=== PATIENT | female | born 1995 | race Caucasian/White ===

== ENCOUNTER 2023-11-30 21:25 | Emergency (ER) | payer MEDICAID, OTHER ==
[~2023-11-30] VITALS: Ht 160 cm; Wt 63.6 kg
[2023-11-30 22:03] VITALS: O2SAT 98
[2023-11-30 22:40] VITALS: TEMP 36.89184
[2023-11-30 22:44] LABS: BASOPHILS % 0.5 % (0.0-2.0); EOSINOPHILS % 0.5 % (0.0-5.0); HEMATOCRIT. 38.9 % (36.0-48.0); HEMOGLOBIN. 13.3 g/dL (12.0-16.0); LYMPHOCYTES % 28.9 % (20.0-50.0); MEAN CORPUSCULAR HEMOGLOBIN 28.6 pg (28.0-32.0); MEAN CORPUSCULAR HGB CONC 34.2 g/dL (31.0-37.0); MEAN CORPUSCULAR VOLUME 83.7 fL (81.0-99.0); MEAN PLATELET VOLUME 9.9 fl (7.4-10.4); MONOCYTES % 6.4 % (2.0-8.0); NEUTROPHILS % 63.7 % (40.0-76.0); PLATELET 181 x1000/uL (130-400); RED BLOOD CELL COUNT 4.65 mill/uL (4.2-5.4); RED CELL DISTRIBUTION WIDTH 13.1 % (11.6-14.6); WHITE BLOOD COUNT 8.7 x1000/uL (4.5-11.0)
[2023-11-30] MEDS: METOCLOPRAMIDE HCL 10MG/2ML VIAL IV ONE (22:49)
[2023-11-30] MEDS: SODIUM CHLORIDE 0.9% 1,000 ML IV ONE (22:49)
[2023-11-30] MEDS: DIPHENHYDRAMINE 50MG/ML VIAL IV ONE (22:49)
[2023-11-30 22:52] LABS: CHLORIDE 107 mEq/L (98-107); POTASSIUM 3.4 mEq/L (3.5-5.1); SODIUM 141 mEq/L (136-145)
[2023-11-30 22:53] LABS: CARBON DIOXIDE 26 mEq/L (21-32)
[2023-11-30 22:54] LABS: CALCIUM 9.5 mg/dL (8.7-10.4)
[2023-11-30 22:55] LABS: PROTHROMBIN TIME 11.1 sec (9.6-11.0)
[2023-11-30 22:57] LABS: HCG SCREEN NEGATIVE
[2023-11-30 22:58] LABS: CREATININE 0.9 mg/dL (0.6-1.0); GLUCOSE 91 mg/dL (70-105); UREA NITROGEN BLOOD 11 mg/dL (9-23)
[2023-11-30 23:06] LABS: ETHANOL BLOOD < 10 mg/dL (<10)
[2023-11-30 23:32] LABS: CLARITY URINE CLEAR (CLEAR); COLOR URINE YELLOW (YELLOW); GLUCOSE URINE NEGATIVE (NEGATIVE); KETONES URINE NEGATIVE (NEGATIVE); LEUKOCYTE ESTERASE URINE NEGATIVE (NEGATIVE); NITRITE URINE POSITIVE (NEGATIVE); OCCULT BLOOD URINE NEGATIVE (NEGATIVE); PH URINE 6.5 (4.5-8.0); PROTEIN URINE NEGATIVE (NEGATIVE); UROBILINOGEN URINE 0.2 E.U./dL (0.2-1.0)
[2023-11-30 23:40] LABS: *AMPHETAMINES SCREEN URINE NEGATIVE (NEGATIVE); *BARBITURATES SCREEN URINE NEGATIVE (NEGATIVE); *BENZODIAZEPINES SCREEN URINE NEGATIVE (NEGATIVE); *COCAINE SCREEN URINE NEGATIVE (NEGATIVE); CANNABINOID URINE SCREEN NEGATIVE (NEGATIVE); METHADONE URINE SCREEN NEGATIVE (NEGATIVE); OPIATES URINE SCREEN NEGATIVE (NEGATIVE); PHENCYCLIDINE URINE SCREEN NEGATIVE (NEGATIVE)
[2023-11-30 23:41] LABS: ECSTASY MDMA SCREEN URINE NEGATIVE (NEGATIVE)
[2023-11-30] MEDS ORDERED: NORT10CA MT (23:51)
[2023-11-30] MEDS ORDERED: NAPR500T7 MT (23:52)
[2023-11-30] MEDS ORDERED: MECL-217 MT (23:55)
[2023-11-30] MEDS ORDERED: ASPI-1497 MT (23:56)
[2023-12-01 00:52] VITALS: BP 98/41; PULSE 81; RESP 17; O2SAT 98
[2023-12-01 02:24] LABS: SQUAMOUS EPITHELIAL CELL URINE 1+ /lpf (RARE/1+)
[2023-12-01 02:26] LABS: BACTERIA URINE NONE SEEN; RBC URINE 0-2 /hpf (0-2); WBC URINE 0-2 /hpf (0-2)
[2023-12-01] MEDS ORDERED: IOHEXOL-350 100 ML BOTTLE ONE (07:56)
== END 2023-12-01 00:53 | disposition home or self-care (01) ==
LOC: ER 21:25
DX: G43.909 Migraine, unspecified, not intractable, without status migrainosus (principal); Z79.899 Other long term (current) drug therapy
CPT/HCPCS: 80305; 80048; 81003; 80320; 84703; 85025; 85610; 36415; 71045; 70496; 70498; 70450; 96361; 96374; 96375; 99285; J1200; J2765; J7030; Q9967; G0480